=== PATIENT | female | born 1970 | race Caucasian/White ===

== ENCOUNTER 2022-12-05 08:40 | Emergency (ER) | payer OTHER, SELFPAY ==
[2022-12-05 08:55] VITALS: BP 132/72; PULSE 94; RESP 16; TEMP 36.4; O2SAT 99; BMI 33.4
--- NOTE | 2022-12-05 10:09 | ED_ITS ---
HPI - Fall General Chief Complaint: Fall Stated Complaint: fell T-6 hit back & head Time Seen by Provider: 12/05/22 10:09 Source: patient, RN notes reviewed and old records reviewed Mode of arrival: Ambulatory Limitations: no limitations History of Present Illness HPI Narrative: This is a 52-year-old female with history of hypertension who had a fall 6 days ago. [place] that was slippery fell backwards and struck her head against the [place]. She states she felt a crunch since then she is had some persistent pain in her neck which she describes as 1/2 out of 10. She states there is no increase in pain with movement with rotation side bending flexion or extension. It feels sort of tight along the neck. Patient denies any headaches. She denies any loss of consciousness. She denies any numbness, tingling or weakness of her extremities, no difficulty with breakfast hostess. She denies any chest pain or shortness of breath. No low back pain. No loss of bowel or bladder control. No nausea or vomiting. No other GI or urinary symptoms. She is been taking Tylenol once or twice daily which resolves her pain. It has not been increasing over time. She went to a walk-in clinic and was referred here. She notes her prior surgeries are hysterectomy she takes medication for blood pressure. No tobacco, no alcohol or illicit. 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 She lives in the [facility] area normally. Review of Systems Review of Systems ROS Unobtainable: All systems reviewed & are unremarkable except as noted in HPI and below Exam Narrative Exam Narrative: GEN: Patient appears in no acute distress. HEAD: No evidence of trauma, no raccoon/Rolon sign. NECK: Nontender, painless range of motion, trachea midline Negative for Nexus criteria, there is no midline line tenderness, distracting injury, altered mental status, neuro deficit, recent EtOH. EYES: PERRLA, EOMI ENT: External inspection normal, trachea is midline, Nares are clear, no septal hematoma, no dental or oral injury, airway is normal and with normal occlusion, No bony tenderness RESP: Chest is nontender and has symmetric movement, no ecchymosis, breath sounds are normal no crackles, wheezes or rales CVS: Heart sounds are normal, no murmur noted, No JVD. ABG/GI: Nontender, soft, normal bowel sounds, no distention, no organomegaly NEURO: Oriented AOx3, neuro is grossly intact, sensation and motor is normal all 4 extremities moving, cranial nerves II through XII are intact, GCS is 15 PSYCH: Normal mood and affect SKIN: Intact, warm and dry, no crepitus and without decubitus BACK: No CVA tenderness, no vertebral tenderness, no step-off's, no crepitus EXT: Atraumatic, normal color and temperature, normal range of motion of extremities, +radial pulses bilaterally. Storage Facility Housekeeper are equal, 5/5 muscle strength upper and lower extremities. With normal breakfast hostess, push and pull of upper extremities. Normal sensation throughout. Initial Vital Signs Initial Vital Signs: Vital Signs Temperature 97.6 F 12/05/22 08:55 Pulse Rate 94 H 12/05/22 08:55 Respiratory Rate 16 12/05/22 08:55 Blood Pressure 132/72 12/05/22 08:55 Pulse Oximetry 99 12/05/22 08:55 Oxygen Delivery Method Room Air 12/05/22 08:[address] [place] [address] Head Rule Age <16 years old: No Patient on blood thinners: No Seizure after injury: No Exclusion: Patient NOT Excluded, Proceed to next steps GCS < 15 at 2 hr post trauma: No Suspected open or depressed skull fracture: No Any sign of basilar skull fracture (hemotympanum, raccoon eyes, Rolon's sign, CSF mery-/rhinorrhea): No Two or more episodes of vomiting: No Age greater or equal to 65 years: No Retrograde amnesia to the event greater or equal to 30 min: No Dangerous Mechanism (pedestrian vs. mv, occupant ejected from mv, fall from >3 ft or > 5 stairs): No Recommendation: CT unnecessary GCS Everardo coma scale eye opening: Spontaneous Everardo coma scale verbal response: Orientated [place] coma scale motor response: Obey commands Everardo coma scale total score: 15 Nexus Score for C-Spine Focal Neurologic deficit present: No Midline spinal tenderness present: No Altered level of conciousness present: No Intoxication present: No Distracting Injury Present: No Nexus Criteria for C-spine: 0 Course Vital Signs Vital signs: Vital Signs - 8 hr 12/05/22 08:55 Temperature 97.6 F Pulse Rate 94 H Respiratory Rate 16 Blood Pressure 132/72 Pulse Oximetry 99 Oxygen Delivery Method Room Air MDM - Fall MDM Narrative Medical decision making narrative: This is a 52-year-old female who had a fall about 6 days ago [place] she slipped and fell backwards striking her head. She has not had any headaches, she is had some persistent neck pain she describes as 1 to 2/10 it is not worse with any movement, she does not have any red flag symptoms. She went to walk-in clinic as it is persisted they recommended her here. She takes Tylenol which resolves it. Patient has not tried heat or other symptoms. Discussed she does not have any tenderness on exam she has full range of motion with no acute neurologic changes on examination and by clinical history. Discussed with patient at this time I feel she does not require CT imaging of her head or neck. We did discuss we could perform it if she is very concerned but after discussion of risks versus benefits for radiation she elects to not pursue. Plan to continue to Tylenol as needed, continue with gentle stretching and warmth or hot packs. If symptoms continue to persist for we discussed if she is any new changes she should be re-evaluated. Discharge Plan Departure Patient Disposition: Home Clinical Impression: Neck pain, Fall Instructions: DI for Neck Pain Activity Restrictions/Additional Instructions: Follow-up if your symptoms continue to persist or you have other new or concerning changes. You can continue with Tylenol as needed. I would recommended moist heat such as hot packs, hot showers or heating pads to the affected area. You can also perform gentle stretching. Please return for worsening pain, new numbness, tingling or weakness, difficulty with breakfast hostess, loss of bowel or bladder control, severe headaches, vomiting or other new or concerning changes Referrals: Miscellaneous,Doctor, MD [Primary Care Provider] - Stand Alone Forms: Patient Portal/API
== END 2022-12-05 10:46 | disposition home or self-care (01) ==
PROVIDERS: Emergency Provider Emergency Medicine
DX: M54.2 Cervicalgia (principal)
CPT/HCPCS: 99281